=== PATIENT | male | born 1960 | race Caucasian/White ===

== ENCOUNTER 2020-01-17 10:21 | Emergency (ER) | payer SELFPAY ==
[~2020-01-17] VITALS: Ht 185.4 cm; Wt 99.8 kg
[2020-01-17 10:26] VITALS: BP 149/92
--- NOTE | 2020-01-17 10:31 | NUR ---
59 y/o male from home c/o cough, sob, and nasal congestion since this morning. States productive cough with yellow/beige sputum. Ran out of albuterol inhaler. RR even and unlabored. Does no appear to be in respiratory distress. Afebrile upon arrival. VSS medhx: asthma
--- NOTE | 2020-01-17 10:34 | NUR ---
TAKEN TO BED 11
[2020-01-17 11:04] VITALS: BP 149/92
--- NOTE | 2020-01-17 11:04 | NUR ---
Patient discharged with v/s stable. Written and verbal after care instructions given and explained. Patient alert, oriented and verbalized understanding of instructions. Ambulatory with steady gait. All questions addressed prior to discharge. ID band removed. Patient advised to follow up with PMD. Rx of PREDNISONE, ALBUTEROL, SUDAFED given. Patient educated on indication of medication including possible reaction and side effects. Opportunity to ask questions provided and answered.
== END 2020-01-17 11:04 | disposition home or self-care (01) ==
LOC: MED 10:21
DX: R05 Cough (principal); R06.2 Wheezing; R09.81 Nasal congestion; J45.909 Unspecified asthma, uncomplicated; Z48.814 Encounter for surgical aftercare following surgery on the teeth or oral cavity
CPT/HCPCS: 99283